=== PATIENT | female | born 1990 | race Two or more races ===

== ENCOUNTER 2017-02-15 09:13 | Emergency (ER) | payer SELFPAY ==
[2017-02-15 09:18] VITALS: BP 130/72; PULSE 88; TEMP 98; BMI 25.7
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
== END 2017-02-15 10:11 | disposition home or self-care (01) ==
LOC: JERFT 09:13
DX: S01.311A Laceration without foreign body of right ear, initial encounter (principal); Y04.0XXA Assault by unarmed brawl or fight, initial encounter; Y93.89 Activity, other specified; Y92.89 Other specified places as the place of occurrence of the external cause
CPT/HCPCS: 99281-25

== ENCOUNTER 2022-11-16 08:43 | Inpatient (IN) | payer OTHER ==
[2022-11-16] MEDS ORDERED: CITRIC ACID/SODIUM CITRATE 30 ML UNIT-DOSE CUP PO ONE (09:00)
[2022-11-16] MEDS ORDERED: ELECTROLYTE-148 SOLN 500 ML IV ONE ×2 (09:00→09:30)
[2022-11-16 09:47] VITALS: BMI 27.8
[2022-11-16] MEDS ORDERED: OXYTOCIN 20 UNITS in 0.9% NS 40 UNIT/2,000 ML INFUS.BAG IV ONE (11:39)
[2022-11-16] MEDS ORDERED: ELECTROLYTE-148 SOLN 1,000 ML IV ONE (11:45)
[2022-11-16] MEDS ORDERED: ceFAZolin SODIUM 1 GM VIAL ONE (11:52)
[2022-11-16] MEDS ORDERED: morphine SULFATE/PF 1 MG/2 ML (2cc Syringe - QUVA) ONE (11:52)
[2022-11-16] MEDS ORDERED: PHENYLEPHRINE HCL 10 MG/1 ML SINGLE DOSE VIAL ONE (11:53)
[2022-11-16] MEDS ORDERED: PROPOFOL 40 ML ONE (13:02)
[2022-11-16] MEDS ORDERED: FENTANYL CITRATE/PF 50 MCG/ML VIAL ONE (13:03)
[2022-11-16] MEDS ORDERED: ELECTROLYTE-148 SOLN 1,000 ML IV SCH (14:45)
[2022-11-16 14:46] LABS: CORD BASE EXCESS -3.9 mmol/L (0-2); CORD HCO3 22.1 mmHg (20-29); CORD PCO2 43.5 mmHg (30-78); CORD pH 7.324 (7.14-7.44)
[2022-11-16] MEDS ORDERED: ePHEDrine SULFATE 50 MG/1 ML AMPULE ONE (14:46)
[2022-11-16 14:48] LABS: CORD BASE EXCESS -3.5 mmol/L (0-2); CORD PCO2 46.9 mmHg (30-78); CORD pH 7.309 (7.14-7.44)
[2022-11-16] MEDS ORDERED: oxyCODONE HCL 5 MG TABLET PO PRN (14:51)
[2022-11-16] MEDS ORDERED: IBUPROFEN 800 MG/8 ML IJ IVPB PRN (14:51)
[2022-11-16] MEDS ORDERED: ACETAMINOPHEN 325 MG TABLET (FP) PO PRN (14:51)
[2022-11-16] MEDS ORDERED: ACETAMINOPHEN 1000 MG/100 ML BAG IVPB PRN (14:51)
[2022-11-16] MEDS ORDERED: ONDANSETRON 4 MG/2 ML VIAL IVPB PRN (14:51)
[2022-11-16] MEDS ORDERED: IBUPROFEN 600 MG TABLET (FP) PO PRN (14:51)
[2022-11-16] MEDS ORDERED: SENNOSIDES/DOCUSATE COMBO (SENNA PLUS) TABLET (UD) PO PRN (14:51)
[2022-11-16] MEDS: OXYTOCIN 20 UNITS in 0.9% NS 20 UNIT/1,000 ML INFUS.BAG IV SCH (15:55)
[2022-11-17] MEDS: OXYTOCIN 20 UNITS in 0.9% NS 20 UNIT/1,000 ML INFUS.BAG IV SCH (02:09)
[2022-11-17 08:25] LABS: BASO % 0.7 % (0-2.0); EOS % 0.5 % (0-4.5); HEMATOCRIT 17.8 % (32.4-45.2); LYMPH % 18.7 % (8-40); MCH 20.6 pg (25.7-33.7); MCHC 31.5 g/dl (32.0-36.0); MEAN CELL VOLUME 65.5 fl (80-96); MEAN PLT VOLUME 6.9 fl (7.5-11.1); MONO % 8.2 % (3.8-10.2); NEUT % 71.9 % (42.8-82.8); PLATELET COUNT 177 10^3/uL (134-434); RBC 2.72 M/mm3 (3.60-5.2); RDW 17.9 % (11.6-15.6); WHITE BLOOD COUNT 8.6 K/mm3 (4.0-10.0)
[2022-11-17 08:45] LABS: HEMOGLOBIN 5.6 GM/dL (10.7-15.3)
[2022-11-17] MEDS ORDERED: BISACODYL 10 MG SUPP.RECT RC PRN (14:51)
[2022-11-18] MEDS: GENTAMICIN IVPB SCH (00:47)
[2022-11-18] MEDS: SODIUM CHLORIDE IVPB SCH (00:47)
[2022-11-18] MEDS: CLINDAMYCIN 900 MG PREMIX IVPB 900 MG/50 ML BAG IVPB SCH ×3 (01:56→17:21)
[2022-11-18 08:26] LABS: BASO % 0.3 % (0-2.0); EOS % 0.3 % (0-4.5); HEMATOCRIT 27.9 % (32.4-45.2); HEMOGLOBIN 9.3 GM/dL (10.7-15.3); MCH 24.3 pg (25.7-33.7); MCHC 33.4 g/dl (32.0-36.0); MEAN PLT VOLUME 7.1 fl (7.5-11.1); MONO % 5.9 % (3.8-10.2); NEUT % 81.5 % (42.8-82.8); PLATELET COUNT 249 10^3/uL (134-434); RBC 3.83 M/mm3 (3.60-5.2); RDW 23.2 % (11.6-15.6); WHITE BLOOD COUNT 12.8 K/mm3 (4.0-10.0)
[2022-11-18 08:57] LABS: MEAN CELL VOLUME 72.8 fl (80-96)
[2022-11-18] MEDS: ASCORBIC ACID 500 MG TABLET (FP) PO SCH (11:58)
[2022-11-18] MEDS: FERROUS SO4 325 MG TABLET (FP) PO SCH ×2 (11:58→21:01)
[2022-11-19 00:29] VITALS: RESP 16
[2022-11-19] MEDS: CLINDAMYCIN 900 MG PREMIX IVPB 900 MG/50 ML BAG IVPB SCH ×2 (01:00→09:33)
[2022-11-19] MEDS: GENTAMICIN IVPB SCH (01:49)
[2022-11-19] MEDS: SODIUM CHLORIDE IVPB SCH (01:49)
[2022-11-19 08:37] LABS: BASO % 0.7 % (0-2.0); EOS % 1.9 % (0-4.5); HEMATOCRIT 28.6 % (32.4-45.2); HEMOGLOBIN 9.3 GM/dL (10.7-15.3); LYMPH % 13.3 % (8-40); MCH 23.3 pg (25.7-33.7); MCHC 32.7 g/dl (32.0-36.0); MEAN CELL VOLUME 71.3 fl (80-96); NEUT % 78.1 % (42.8-82.8); PLATELET COUNT 245 10^3/uL (134-434); RBC 4.01 M/mm3 (3.60-5.2); RDW 23.2 % (11.6-15.6); WHITE BLOOD COUNT 11.2 K/mm3 (4.0-10.0)
[2022-11-19 09:33] LABS: ANISOCYTOSIS 3+; MACROCYTOSIS 0
[2022-11-19] MEDS: FERROUS SO4 325 MG TABLET (FP) PO SCH (09:34)
[2022-11-19] MEDS: ASCORBIC ACID 500 MG TABLET (FP) PO SCH (09:34)
[2022-11-19 12:22] VITALS: BP 125/87; PULSE 96; TEMP 98.2
== END 2022-11-19 15:05 | disposition home or self-care (01) | DRG 540 ==
LOC: JLDR 08:43 → J3W 16:15
PROVIDERS: ADMIT Family Medicine; ATTEND Family Medicine
PROC: 30233N1 Transfusion of Nonautologous Red Blood Cells into Peripheral Vein, Percutaneous Approach (ICD-10-PCS; principal; 2022-11-16)
PROC: 10D00Z1 Extraction of Products of Conception, Low, Open Approach (ICD-10-PCS; 2022-11-16)
DX: O34.211 Maternal care for low transverse scar from previous cesarean delivery (principal); D62 Acute posthemorrhagic anemia; O90.81 Anemia of the puerperium; D72.829 Elevated white blood cell count, unspecified; N73.6 Female pelvic peritoneal adhesions (postinfective); Z3A.39 39 weeks gestation of pregnancy; Z37.0 Single live birth
CPT/HCPCS: 36415; 36430; 36600; 80053; 81003; 82803; 85025; 85610; 85730; 86850; 86900; 86901; 86922; 88307-TC; C9803-CS; P9058; U0003; U0005